=== PATIENT | female | born 1945 | race Caucasian/White ===

== ENCOUNTER 2017-03-23 11:33 | Day surgery (SDC) | payer OTHER ==
[~2017-03-23] VITALS: Ht 152.4 cm; Wt 67.8 kg
[2017-03-23] MEDS ORDERED: NS 1000P @30 MLS/HR (KVO) IV SCH (12:00)
[2017-03-23 12:26] VITALS: BP 129/66; PULSE 43; RESP 18; TEMP 97.9; O2SAT 95
[2017-03-23] MEDS ORDERED: LEVO100T5 PO (12:27)
[2017-03-23] MEDS ORDERED: NAPR500T PO (12:27)
[2017-03-23] MEDS ORDERED: NITR.3 SL (12:27)
[2017-03-23] MEDS ORDERED: AMLO10TA2 PO (12:27)
[2017-03-23] MEDS ORDERED: ASPI81CH CHEW (12:27)
[2017-03-23] MEDS ORDERED: ISOS60TA PO (12:27)
[2017-03-23] MEDS ORDERED: LOSA100T PO (12:27)
[2017-03-23] MEDS ORDERED: LORA-520 (12:27)
[2017-03-23] MEDS ORDERED: OXYB5TAB10 PO (12:27)
[2017-03-23] MEDS ORDERED: ATEN25TA PO (12:27)
[2017-03-23] MEDS ORDERED: ALEN1TAB48 PO (12:27)
[2017-03-23] MEDS ORDERED: FURO20TA PO (12:27)
[2017-03-23] MEDS ORDERED: GABA100C4 PO (12:27)
[2017-03-23] MEDS ORDERED: ATOR40TA16 PO (12:27)
[2017-03-23] MEDS ORDERED: TRAM50TA PO (12:28)
[2017-03-23] MEDS ORDERED: TRAZ50TA12 PO (12:28)
[2017-03-23] MEDS ORDERED: VITA100064 PO (12:28)
[2017-03-23 12:38] LABS: AUTOMATED NEUTROPHIL # 3.7 TH/MM3 (1.8-7.7); BASOPHIL # 0.1 TH/MM3 (0-0.2); BASOPHIL % 0.9 % (0.0-2.0); EOSINOPHIL # 0.4 TH/MM3 (0-0.4); HEMATOCRIT 44.8 % (35.0-46.0); HEMO FLAGS DIFF FINAL; LYMPH % 37.6 % (9.0-44.0); LYMPHOCYTE # 2.8 TH/MM3 (1.0-4.8); MEAN CELL VOLUME 92.7 FL (80.0-100.0); MEAN CORPUSCULAR HEMOGLOBIN 30.6 PG (27.0-34.0); MEAN CORPUSCULAR HGB CONC 33.1 % (32.0-36.0); MONO % 7.1 % (0.0-8.0); NEUT % 49.4 % (16.0-70.0); PLATELET COUNT 201 TH/MM3 (150-450); RED BLOOD COUNT 4.84 MIL/MM3 (4.00-5.30); RED CELL DISTRIBUTION WIDTH 13.2 % (11.6-17.2); WHITE BLOOD COUNT 7.5 TH/MM3 (4.0-11.0)
[2017-03-23 12:52] LABS: APTT (PATIENT) 27.1 SEC (24.3-30.1); PROTHROMBIN TIME - PATIENT 11.6 SEC (9.8-11.6)
[2017-03-23 12:56] LABS: BICARBONATE 25.9 MEQ/L (21.0-32.0)
[2017-03-23] MEDS ORDERED: HEPARIN-NS/PF INJ 500 ML ONE (14:26)
[2017-03-23] MEDS ORDERED: IOHEXOL 350 MG/ML 50 ML BTL (for Cath Lab) OTHER ONE (14:26)
[2017-03-23] MEDS ORDERED: HEPARIN SODIUM - IV 10,000 UNITS/10 ML VIAL ONE (14:34)
[2017-03-23] MEDS ORDERED: MIDAZOLAM HCL 2 MG/2 ML VIAL ONE ×2 (14:34→14:43)
[2017-03-23] MEDS ORDERED: VERAPAMIL HCL 5 MG/2 ML VIAL ONE (14:34)
--- NOTE | 2017-03-23 15:07 | CATHPROC ---
[facility] HIS Report Study Information Study Number Scheduled Start Study Start [id number] 03/23/2017 Mar 23 2017 2:26PM Referring Institution Admit Source Facility Department 1 Other [facility] - Director Multimedia Physician and Clinical Staff Initial Zacarias Valadez Slasher Sawyer Ebenezer BECK, Shar Mcnamara RCIS(BS) Yakelin Rasheed RCIS TECH2 Procedures Performed Procedure Location (Site) Vessel Name Coronary Angiograms LCA Left Coronary Coronary Angiograms RCA Right Coronary L Heart Cath LV Gram-hand inj. LV LV Ventricle Equipment Time Multifocal Button Generator Description Size Mfg Part Number Used/Scraped TRANSDUCER, TRUWAVE 14:45 ALMARAZ TRUJILLO * [id number] Used W/FusionAds [id number] *[id number] 14:45 MALLINCKRODT SYRINGE, ANGIOMAT 150ML 150ML [id number] Used Hakia CONCEPT DRAPE, RADIAL FEMORAL FULL 14:45 * [id number] *[id number] Used DEVELOPMENT BODY [id number] 14:45 [employer] PACK, CCL CUSTOM * Used *[id number] 14:45 [employer] SUPPORT, ARTERIAL ADULT [id number] Used 14:45 Cequint PACER PEN, SKIN DUAL W/ RULER * [id number] Used BAND, RADIAL COMPRESSION TR [id number] 14:54 Surplex 24CM Used SHORT 24 *[id number] SHEATH, FR6 RADIAL PRELUDE 14:45 Surplex FR 6 [id number] Used EASE 11CM [id number] 14:45 Surplex WIRE, EXCHANGE 260CM 3MMJ 260CM Used *[id number] 14:45 NAMIC MANIFOLD, 4 PORT * Used *[id number] 14:45 NYCOMED OMNIPAQUE, 350 MG, 100ML 100ML [id number] Used 14:45 NYCOMED OMNIPAQUE, 350 MG, 150ML 150ML [id number] Used [id number] 14:45 Nativeflow BLANKET,WARM AIR CCL * Used *[id number] CATHETER, FR5 OPTITORQUE [id number] 14:27 [employer] FR 5 Used RADIAL TIG 4.0 *[id number] History: Current Medications Medication Dosage/Unit Route Frequency Last Date/Time Taken ASA Beta Nidhi Statins (any) History: Allergies Allergy Reaction Nonsteroidal Anti-Inflammatory Agts History: Risk Factors Family History of Hypertension Dyslipidemia Previous HI Previous Heart Failure Premature CAD Yes Yes Yes Yes No Prior Valve Prior PCI Prior PCIDate Prior CABG Surgery No Yes 11/08/2004 No Cerebrovascular Peripheral Artery Chronic Lung On Dialysis Diabetes Disease Disease Disease No No No No No History: Stress Tests Stress or Imaging Studies Performed No History: Other Current Smoker Method Packs a Day Years Used Pack Years Yes Cigars 4 57 228 Labs Hgb (g/dl) Hct (%) WBC (l/cumm) Platelets (thousands) 12.00-18.00 37.00-55.00 4.80-10.80 140.00-450.00 14.8 44.8 7.5 201 Glucose (mg/dl) BUN (mg/dl) Creatinine (mg/dl) BUN:Creatinine (1:x) 60.00-110.00 8.00-20.00 0.10-9.00 10.00-20.00 83 18 0.9 20 Na (meq/l) K (meq/l) 138.00-146.00 3.80-5.10 140 5 INR (PTT:PT) 0.50-2.00 1 CPK-MB (ng/ML) 0.00-7.00 Not Drawn Medication Medication Total Dose (Bolus/Oral) Medication Total Dosage/Unit 1% XYLOCAINE 10 mL RADIAL COCKTAIL 5 mL (Bolus) VERSED 2 mg Medications (Bolus/Oral) Medication Time Given Dosage/Unit Administered By Reason 1% XYLOCAINE 03/23/2017 2:40:31 PM 10 mL Zacarias Moreno 10 mL 1% XYLOCAINE given in lab by Zacarias Moreno in Right Radial via Subcutaneous. Ordered by Rachelle Moreno. VERSED 03/23/2017 2:40:52 PM 2 mg Gustabo Sol RN 2 mg VERSED given in lab by Gustabo Sol RN in Right Antecubital via Peripheral IV. Ordered by Zacarias Moreno. Ntg 200mcg Verapamil 2.5mg Heparin RADIAL COCKTAIL 03/23/2017 2:45:04 PM 5 mL (Bolus) Gustabo Sol RN 2500U 5 mL (Bolus) RADIAL COCKTAIL given in lab by Gustabo Sol RN via Radial. Using [Solution Name]. Order ed by Zacarias Moreno. Reason: Ntg 200mcg Heparin 2500U. Medication (Drip) Medication Time Given Dosage/Unit Concentration/Unit Diluent (ml) Solution IV Solutions 03/23/2017 2:27:15 PM 0 mL (IV) 500 NaCl .9 Patient arrived on IV Solutions in Right Antecubital via Peripheral IV. Pump/Drip Flow = 20 ml/hr usi ng NaCl .9. Ordered by Zacarias Moreno. Initial Case Assessment Cardiovascular HR Rhythm NIBP Chest Pain 49 IRR 114/66 0 Edema Present Skin color Skin None Normal Warm Dry Circulatory - Right Pulses Dorsalis Pedis Femoral Radial 1 1 1 Scale (0,1,2,3,4,d) Circulatory - Left Pulses Dorsalis Pedis Femoral Radial 1 1 Scale (0,1,2,3,4,d) Circulatory - Lower Extremities Color Lower Right Color Lower Left Normal Normal Neurological State Oriented to time-place- Alert Moves all extremities person Respiration - General Respiration Rate SpO2 (%) (B/min) 14 99 Final Case Assessment Cardiovascular HR Rhythm NIBP Chest Pain 49 IRR 124/68 0 Edema Present Skin color Skin None Normal Warm Dry Circulatory - Right Pulses Dorsalis Pedis Femoral Radial 1 1 1 Scale (0,1,2,3,4,d) Circulatory - Left Pulses Dorsalis Pedis Femoral Radial 1 1 Scale (0,1,2,3,4,d) Circulatory - Lower Extremities Color Lower Right Color Lower Left Normal Normal Neurological State Oriented to time-place- Alert Moves all extremities person Respiration - General Respiration Rate SpO2 (%) (B/min) 14 99 Chronological Log Time Study Chronological Log 14:26:39 Patient arrived via Bed. 14:26:40 Patient Name, D.O.B, / Armband Verified By R.N. 14:26:41 Consent signed by the physician and the patient and verified by the Director Multimedia staff. 14:26:41 Pre-op and post- op instructions given; patient acknowledges understanding of instructions. 14:26:52 Allens test performed on the right radial and ulnar artery. 14:26:55 Patient has been NPO for Less than 6Hrs. 14:26:57 Skin Breakdown- 14:27:05 Patient Warmer Placed on the Table. 14:27:14 A # 20 IV was noted in the Antecubital (right). Grade = 0 Patient arrived on IV Solutions in Right Antecubital via Peripheral IV. Pump/Drip Flow = 20 ml/ hr using NaCl .9. Ordered 14:27:15 by Zacarias Moreno. 14:27:17 History and physical on the chart or being dictated. Assessment: Initial Case, HR=49 BPM, Rhythm=IRR, DBFD=664/66 mmhg, Chest Pain=0, Edema=None, Color=Normal, Skin = Warm, Dry Right Pulses: Gianluca Ped=1, Femoral=1, Radial=1 Left Pulses: Gianluca Ped=1, Femoral=1 14:27:17 Lower Right Extremities: Color=Normal Lower Left Extremities: Color=Normal Neurological: State=Alert, Ox3, PHELPS Respiration: Resp=14 B/min, SpO2=99 % Vitals capture started with the following parameters, Patient=Adult, Interval=15 min, Initial P mxgovxx=246 mmHg, 14:30:39 Deflation Rate=5 mmHg 14:31:09 HR=49 bpm, HXJM=012/66 mmhg, SpO2=97.0 %, Resp=1 B/min, Pain=0, Kory=10, Keller=2 14:33:10 MD arrived. 14:36:14 HR=41 bpm, XLRE=623/65 mmhg, SpO2=98.0 %, Resp=12 B/min, Pain=0, Kory=10, Keller=2 14:37:25 Reference ECG taken 14:37:46 Pressure channel 1 zeroed. 14:38:36 Right Radial and groin(s) prepped with 2% chlorhexidine, and with a 3 min. waiting time. Time Out. Correct patient, correct procedure,correct physician, power injector not loaded with contrast with surgical 14:39:53 team present. Time Out Concurred by MD, individual staff in procedure 14:40:29 Case Start 14:40:31 10 mL 1% XYLOCAINE given in lab by Zacarias Moreno in Right Radial via Subcutaneous. Ordered b y Zacarias Moreno. 14:40:52 2 mg VERSED given in lab by Gustabo Sol RN in Right Antecubital via Peripheral IV. Ordered by Zacarias Moreno. 14:41:12 Access site was RIGHT Radial Artery. 14:41:15 HR=55 bpm, APAQ=100/71 mmhg, SpO2=99.0 %, Resp=8 B/min, Pain=0, Kory=10, Keller=2 A SHEATH, FR6 RADIAL PRELUDE EASE 11CM FR 6 was advanced into the Radial (right) using the Perc utaneous 14:43:18 technique. 5 mL (Bolus) RADIAL COCKTAIL given in lab by Gustabo Sol RN via Radial. Using [Solution Name]. Ordered by Josh, 14:45:04 Zacarias. Reason: Ntg 200mcg Heparin 2500U. A CATHETER, FR5 OPTITORQUE RADIAL TIG 4.0 FR 5 was advanced over a wire. OMNIPAQUE, 350 MG, 150 ML 150ML 14:45:05 was used for injections. 14:46:17 The LCA was injected and visualized at various angles. OMNIPAQUE, 350 MG, 150ML 150ML used . 14:46:20 HR=45 bpm, XCRM=401/60 mmhg, SpO2=96.0 %, Resp=14 B/min, Pain=0, Kory=10, Keller=2 Recorded Pressure: Ao, HR=50, Condition=Condition 1 14:47:15 (Aorta) Ao 123/46/76 14:47:30 The RCA was injected and visualized at various angles. OMNIPAQUE, 350 MG, 150ML 150ML used . 14:48:33 Catheter was removed A MPA-2 INFINITI CATHETER FR 6 was advanced over a wire. OMNIPAQUE, 350 MG, 150ML 150ML was use d for 14:49:00 injections. Recorded Pressure: LV, HR=56, Condition=Condition 1 14:49:59 (Left Ventricle) LV 130/6/19 14:50:08 The LV was manually injected with 8 cc's and visualized. OMNIPAQUE, 350 MG, 150ML 150ML use d. Recorded Pressure: LV, Ao, HR=59, Condition=Condition 1 14:50:18 (Left Ventricle) LV 134/8/20, (Aorta) Ao 137/50/84 14:51:17 HR=58 bpm, OOUS=878/68 mmhg, SpO2=95.0 %, Resp=14 B/min, Pain=0, Kory=10, Keller=2 14:52:36 Catheter was removed 14:52:40 Case End Assessment: Final Case, HR=49 BPM, Rhythm=IRR, MEFM=600/68 mmhg, Chest Pain=0, Edema=None, Col or=Normal, Skin = Warm, Dry Right Pulses: Gianluca Ped=1, Femoral=1, Radial=1 Left Pulses: Gianluca Ped=1, Femoral=1 14:52:56 Lower Right Extremities: Color=Normal Lower Left Extremities: Color=Normal Neurological: State=Alert, Ox3, PHELPS Respiration: Resp=14 B/min, SpO2=99 % Radial Compression Device Used. 9 mLs of air placed in BAND, RADIAL COMPRESSION TR SHORT 24 24 CM. Affected 14:53:56 hand 97 % O2 saturation. 14:54:37 Sterile dressing applied to site 14:54:38 No case complications noted. 14:54:39 Cine recording checked. 14:55:17 Bedside Report will be given. 14:55:19 Contrast Scanned 14:55:23 A Left Heart Cath was performed. 14:56:18 HR=56 bpm, DTSH=266/63 mmhg, SpO2=96.0 %, Resp=25 B/min, Pain=0, Kory=10, Keller=2 15:03:00 Patient moved to stretcher End Study - Contrast Media Used In Study Contrast Total Opened (mL) Total Used (mL) Total Wasted (mL) Omnipaque 50 50 0 End Study - Maximum Contrast Load Max Contrast Load (mL) 376.8 End Study - Radiation Exposure Fluoro Time (minutes) 2.1 End Study - Patient Disposition Complications Transferred To No Telemetry Bed
[2017-03-23] MEDS ORDERED: MISC INFORMATION XX ONE (15:15)
--- NOTE | 2017-03-23 16:34 | MA ---
cc: SWAPNIL MOISE M.D. DATE 03/23/2017 PROCEDURE Left heart catheterization, selective coronary angiography, left ventriculography. PROCEDURE NOTE The patient was brought to the cardiac catheterization laboratory in a fasting state after having signed informed consent. The right radial region was prepped and draped as per policy and anesthetized with 1% lidocaine. Arterial access was obtained via the right radial artery and a 6-Macedonian sheath placed. Coronary arteriography was performed using a [place] catheter. Hand injection left ventriculography was done using a multipurpose catheter. There were no apparent immediate complications. HEMODYNAMIC RESULTS Left ventricle 134 with an end-diastolic pressure of 15. Aorta 137/50 with a mean of 84. There was no significant transvalvular aortic gradient on pullback of pigtail catheter. CORONARY ARTERIOGRAPHY The left main is normal. The left anterior descending is a relatively small vessel giving rise to a small high first diagonal and small second diagonal. There is diffuse proximal to mid LAD disease. Proximally there is diffuse up to 15% stenosis. In the mid-LAD there is up to 25% stenosis. The distal LAD has minimal luminal irregularities. The first diagonal has 60% ostial stenosis. The more medial branch of this diagonal may have up to 90% stenosis. This branch is very small in caliber. The left circumflex is a relatively small vessel giving rise to a medium-sized first obtuse marginal and relatively small second obtuse marginal. The first obtuse marginal has a 25% proximal tubular stenosis. The rest of the left circumflex has minimal luminal irregularities. The right coronary artery is a large dominant vessel which has diffuse disease. There is likely up to 10% proximal stenosis, 20% mid disease, and possibly up to 30% stenosis distally just prior to the takeoff of the posterior descending artery which demonstrates a stent in its mid portion. This stent is widely patent. LEFT VENTRICULOGRAPHY Contrast injection of the left ventricle reveals no segmental wall motion abnormalities. Ejection fraction is estimated at 60%. CONCLUSION 1. Overall mild coronary disease, except severe disease in a very small caliber branch off the first diagonal, and widely patent posterior descending artery stent placed in 2004. 2. Normal left ventricular function with estimated ejection fraction of 60%. MD CODY Garcia/TAVARES /3:01 PM /4:22 PM MTDKenny
--- NOTE | 2017-03-24 11:07 | EKG ---
Date Performed: 03/23/2017 Time Performed: 12:23:08 PTAGE: 71 years EKG: Sinus bradycardia. --- Suspect arm lead reversal - only aVF, V1-V6 analyzed --- IV conducti on defect Poor R wave progression - probable normal variant Abnormal ECG NO PREVIOUS TRACING DOCTOR: Bharat Lee Interpretating Date/Time 03/24/2017 11:06:17
== END 2017-03-23 18:51 | disposition home or self-care (01) ==
LOC: HDOC 11:33 → HDIC 11:34 → HDOC 18:51
PROVIDERS: ATTEND Internal Medicine Cardiovascular Disease
DX: I25.10 Atherosclerotic heart disease of native coronary artery without angina pectoris (principal); I44.7 Left bundle-branch block, unspecified; I10 Essential (primary) hypertension; E78.5 Hyperlipidemia, unspecified; E03.9 Hypothyroidism, unspecified
CPT/HCPCS: 80048; 85025; 85610; 85730; 93005; 93458; C1769; C1893; J1644; J2250; Q9967